=== PATIENT | male | born 1970 | race Caucasian/White ===

== ENCOUNTER 2017-02-19 09:15 | Emergency (ER) | payer MEDICAID ==
[~2017-02-19] VITALS: Ht 177.8 cm; Wt 112.2 kg
[2017-02-19 09:17] VITALS: BP 148/80; PULSE 102; RESP 18; TEMP 98.2; O2SAT 96
[2017-02-19] MEDS ORDERED: DEXI60CA3 PO (09:26)
[2017-02-19] MEDS ORDERED: LISI2.5T3 PO (09:26)
[2017-02-19] MEDS ORDERED: INDO50CA PO (09:26)
--- NOTE | 2017-02-19 09:37 | PD ---
HPI Chief Complaint: Cold / Flu Symptoms Time Seen by Provider: 09:23 Travel History International Travel<30 days: No Contact w/Intl Traveler<30days: No Traveled to known affect area: No History of Present Illness HPI 46-year-old male with PMH of HTN presents to ED for evaluation of approximately 36 hour history of body aches, sore throat, subjective fevers, sinus congestion , nonproductive cough. The patient denies ear pain, nausea, vomiting. He endorses 7/10 pleuritic rib pain with coughing. No alleviating factors reported. He denies shortness of breath, palpitations, history of environmental or seasonal allergies. He is a nonsmoker. Denies sick contacts. He did not receive this years flu vaccine. He is visiting from [place]. [facility] Past Medical History Cardiovascular Problems: Yes (HTN) GERD: Yes Gout: Yes Hypertension: Yes Social History Alcohol Use: Yes (1 1/2 CASES/WEEK) Tobacco Use: No Substance Use: No Allergies-Medications (Allergen,Severity, Reaction): Coded Allergies: No Known Allergies (Unverified , 02/19/17) Reported Meds & Prescriptions Reported Meds & Active Scripts Active Coditussin AC Liq (Guaifenesin-Codeine Liq) 200-10 Mg/5ML Liqd 5 Ml PO Q4H PRN Tessalon Perles (Benzonatate) 100 Mg Cap 200 Mg PO TID PRN Reported Lisinopril 2.5 Mg Tab Unknown Dose PO DAILY Indomethacin 50 Mg Cap 50 Mg PO DAILY Take with food, milk, or antacids to decrease stomach adverse effects. Dexilant (Dexlansoprazole) 60 Mg Cap.bp 1 Tab PO DAILY Review of Systems Except as stated in HPI: all other systems reviewed are Neg Physical Exam Narrative GENERAL: Well-nourished, well-developed white male in no acute distress. SKIN: Warm and dry. HEAD: Normocephalic. Atraumatic. EYES: No scleral icterus. No injection or drainage. PERRLA. EOMI. ENT: Pearly lezama tympanic membranes bilaterally. Nasal mucosa is moist. Oropharynx with posterior erythema. Scant exudates. No edema noted. Uvula midline. Airway patent. NECK: Supple, trachea midline. No JVD or lymphadenopathy. CARDIOVASCULAR: Regular rate and rhythm without murmurs, gallops, or rubs. CHEST: Nontender throughout without deformity or crepitus. RESPIRATORY: Breath sounds clear and equal bilaterally. No accessory muscle use. GASTROINTESTINAL: Abdomen soft, non-tender, nondistended. + Bowel sounds MUSCULOSKELETAL: No cyanosis, or edema. BACK: Nontender without obvious deformity. No CVA tenderness. Data Data Last Documented VS Vital Signs Date Time Temp Pulse Resp B/P (MAP) Pulse Ox O2 Delivery O2 Flow Rate FiO2 02/19/17 09:17 98.2 102 18 148/80 (102) 96 Orders Orders Influenzae A/B Antigen (02/19/17 09:21) Group A Rapid Strep Screen (02/19/17 09:31) Benzonatate (Tessalon) (02/19/17 09:45) Strep Culture (Group A) (02/19/17 09:35) Ed Discharge Order (02/19/17 09:55) MDM Medical Decision Making Medical Screen Exam Complete: Yes Emergency Medical Condition: Yes Differential Diagnosis Viral syndrome versus influenza versus pharyngitis versus strep pharyngitis versus other Narrative Course 46-year-old male with PMH of HTN presents to ED for evaluation of approximately 36 hour history of body aches, sore throat, subjective fevers, sinus congestion , nonproductive cough. No flu vaccination. Visiting from [place]. Patient is hypertensive, pulse 102 on presentation. Physical exam reveals an ill- appearing white male in no acute distress. There is posterior oropharyngeal erythema with scant exudates on the ENT exam. Chest CTAB. He treated with Advil possibly 7 AM. Patient was administered 100 mg Tessalon by mouth. Rapid strep swab negative. Influenza swab negative. This is viral syndrome. Patient is prescribed Tessalon Perles and codeine cough syrup to help with this cough. He is instructed to use an OTC medication with decongestant such as Mucinex D and continue to treat symptomatically. We discussed reasons to return to the ED. The patient is stable and discharged home. Diagnosis Primary Impression: Viral syndrome Referrals: Primary Care Physician Patient Instructions: General Instructions, Viral Syndrome (ED) Additional Instructions: Rest, hydrate. Push fluids such as sports drinks, Pedialyte, popsicles, clear broth. Takes Tessalon every 8 hours to reduce cough. Cough syrup at bedtime to reduce cough. Do not drive while taking codeine cough syrup as it can make you drowsy. Continue with symptomatic treatment with OTC medications. I recommend an OTC product containing a decongestant such as Mucinex D. Alternating Motrin and Tylenol every 4-6 hours as needed for continued fever. Increase handwashing frequently to avoid the spread of the virus to other family members and the community. Disinfect commonly touched surfaces such as light switches, microwaves, remote controls. Replace toothbrush at the end of this illness. Follow-up with the primary care provider. Return to the ED for any urgent or emergent medical condition. Med/Other Pt SpecificInfo: Prescription(s) given Scripts Guaifenesin-Codeine Liq (Coditussin AC Liq) 200-10 Mg/5ML Liqd 5 ML PO Q4H Y, #120 ML 0 Refills Prov: Jung Harris MD 02/19/17 Benzonatate (Tessalon Perles) 100 Mg Cap 200 MG PO TID Y for COUGH, #15 CAP 0 Refills Prov: Jung Harris MD 02/19/17 Disposition: 01 DISCHARGE HOME Condition: Stable Chuyita Stevenson Feb 19, 2017 09:37
[2017-02-19] MEDS ORDERED: BENZONATATE 100 MG CAP PO ONE (09:45)
[2017-02-19] MEDS ORDERED: BENZ100 PO (09:55)
[2017-02-19] MEDS ORDERED: GUAI1LIQ13 PO (09:55)
== END 2017-02-19 10:03 | disposition home or self-care (01) ==
LOC: PHEFT 09:15
DX: B34.9 Viral infection, unspecified (principal); J02.9 Acute pharyngitis, unspecified; K21.9 Gastro-esophageal reflux disease without esophagitis; M10.9 Gout, unspecified; I10 Essential (primary) hypertension
CPT/HCPCS: 87081; 87804; 87880; 99284